=== PATIENT | female | born 1975 | race African-American/Black ===

== ENCOUNTER 2020-02-13 01:03 | Inpatient (IN) | payer OTHER ==
[2020-02-13] MEDS ORDERED: SODIUM CHLORIDE 0.9% (FLUSH) 10 ML SYG IV PRN ×2 (01:13→09:13)
--- NOTE | 2020-02-13 01:16 | ED.PDOC ---
History of Present Illness - General Chief Complaint: Neuro Symptoms/Deficits Time Seen by Provider: 02/13/20 01:13 Source: patient, EMS, [facility] records - History of Present Illness Initial Comments: 44-year-old female with past medical history of chronic respiratory failure, trach/g-tube dependency, CAD, diabetes who is brought in by EMS from [facility] for chief complaint of altered mental status. Patient was last known to be normal around 7 PM. She was given Levemir 15 units subcu this evening and just prior to arrival the nurses noted that she was more altered than usual. Typically she is AAOx4, normal cognitive status, able to communicate by mouthing words/sentences (2/2 trach). Staff noted this evening that her eyes seem glazed and she did not seem alert and was unresponsive to simple questioning. Patient noted to be slightly hypotensive 90s/60s. EMS noted on scene also that rapid D stick was noted to be so low it would not register with the glucometer, estimated less than 30. An IO was placed to the left tibia by EMS and patient was given 1 amp of D50 in route. Her mental status improved back to baseline. Patient then reported some pain from the IO and she was given a dose of morphine. Currently she denies any pain or other acute symptoms. Specifically denies chest pain, shortness of breath, abdominal pain, nausea. Reportedly patient was [facility] a [facility] last month after having a prolonged hospital stay following a massive heart attack and prolonged ICU stay. Little else is known about her history at this time. Allergies/Adverse Reactions: Allergies Metronidazole [From Flagyl] Allergy (Verified 02/13/20 03:01) Home Medications: Ambulatory Orders Acetaminophen [Tylenol] 500 mg PO DAILY 02/13/20 Amiodarone HCl 200 mg PO DAILY 02/13/20 Aspirin [Aspirin 81 Low Dose] DAILY 02/13/20 Atorvastatin Calcium 40 mg PO DAILY 02/13/20 Carvedilol 6.25 mg PO DAILY 02/13/20 Cyanocobalamin [B12] 1,000 mcg PO DAILY 02/13/20 Ergocalciferol [Vitamin D] 50,000 unit PO DAILY 02/13/20 Famotidine 20 mg PO DAILY 02/13/20 Ferrous Sulfate [Feosol Tab] 325 mg PO 02/13/20 Furosemide 40 mg PO 02/13/20 Ibuprofen 600 mg PO 02/13/20 Insulin Glargine [Basaglar Kwikpen] 100 unit SC 02/13/20 Ipratropium-Albuterol [Ipratropium [place]/Albut 0.5-2.5 (3) mg/3Ml] 02/13/20 Metformin HCl [Metformin Hydrochloride E] 500 mg PO 02/13/20 Sennosides-Docusate Sodium [Docusate Sodium/Sennoside 8.6-50 mg] 1 tab PO 02/13/20 Ticagrelor [Brilinta] 90 mg PO 02/13/20 levETIRAcetam INJ [Keppra INJECTION] 0 mg IV 02/13/20 Review of Systems - Review of Systems Review of Systems: 02/13/20 01:38 as per HPI All other Systems: Reviewed and Negative Family Medical History - Family History Father Family History: Unknown Physical Exam - Physical Exam General Appearance: Alert, Comfortable, No apparent distress, Obese Eye Exam: bilateral normal Ears, Nose, Throat: normal ENT inspection Neck: non-tender, full range of motion, supple, normal inspection, other - tracheostomy present Respiratory: chest non-tender, lungs clear, normal breath sounds, no respiratory distress, no accessory muscle use Cardiovascular/Chest: normal peripheral pulses, regular rate, rhythm, no edema, no gallop, no JVD, no murmur, other - distant heart sounds due to large body habitus Peripheral Pulses: radial,right: 2+, radial,left: 2+ Gastrointestinal/Abdominal: soft, mass - large approx 20x20 cm mass in lower abdomen/suprapubic region, appears nontender on exam, no olson catheter in place, other - g-tube in place to epigastric/LUQ region Extremity: non-tender, normal inspection, normal capillary refill, pedal edema Neurologic: alert, other - appears awake and alert, able to answer simple yes/no questions, appears in no distress, bed-bound Skin Exam: normal color, warm/dry Progress - Progress Progress: 02/13/20 01:41 Altered mental status -consider: acute hypoglycemia 2/2 insulin given clinical scenario with improvement with D50. Consider also: sepsis, ACS, CVA, uremia, acute neurogenic bladder, acute renal failure, SBO, UTI, PNA, COVID-19, DKA, other -pt stable upon ED arrival, on baseline respiratory requirement - 2 L supplemental O2 by cannula. BP improved to 110s/80s -pt also noted to have large lower abdominal/suprapubic mass on arrival - appears to be extremely enlarged bladder filled with urine, gross estimate >3 L -obtain stat bloodwork, follow D-stick glucose q15-20 mins, sepsis work-up, rapid COVID-19 swab, insert olson catheter, clamp frequently 02/13/20 03:20 -Patient again developed slight altered mental status and glucose was found to be less than 40. Another 1 amp of D50 was given with rapid improvement of mental status back to baseline. -She has put out now more than 2 L of urine with Olson catheter placement. Appears dark and cloudy, very suspicious for infection. UA pending. Labs otherwise reveal serum WBC 17,000 with 81% neutrophils and no bands, lactic acid 2.2. H/H 7.4/23, PLTs 643,000. Na 146, Cl 112, K 4.9, bicarb 20, BUN 70, Cr 2.7. T bili/alk phos/LFT's wnl. Rapid COVID-19 negative. No prior labs on record for comparison. Concern for recurrent/resistant hypoglyemia, sepsis, acute anemia, acute renal failure (obstructive vs prerenal vs combined). Pt denies any hx of rectal bleeding. She does report hx of anemia and need for blood transfusion in the past. -Vitals stable at the moment. Will give 1 L NS bolus. Begin broad-spectrum Abx with Zosyn. Obtain CT C/A/P to look for possible sources of occult hemorrhage. Will likely need admission vs transfer to higher LOC for management of trach while inpatient. Awaiting RVP results. COVID-19 testing is negative. 02/13/20 05:22 -Repeat D-stick. Pt remains stable. Now >3.5 L UOP since arrival. -CT head shows no acute processes, limited eval due to motion artifact. -CT Chest shows LLL atelectasis vs infiltrate. CT A/P reveals mild prominence of BL renal collecting systems w/o evidence of acute obstruction. Bladder wall thickening also noted. Gallstones noted w/o evidence of acute pathology. No other acute processes noted. No occult hemorraging noted. -Rectal exam reveals Stage III ulcer of buttocks. Light brown stool in rectal vault, no masses or bleeding. No fissures. FOBT negative. Suspect anemia is chronic in nature and not acute as no evidence of active hemorrhage. Pt does report hx of anemia and hx of need for blood transfusions in the past. -Given CT findings of possible LLL infiltrate in septic trach pt, concern for possible aspiration PNA - Vancomycin 1 g IV added to Abx regimen. Will also given another 1 L NS bolus. -Spoke with Luisito Smith regarding possible admission for sepsis, hypoglycemia, AMS, UTI, acute kidney injury, anemia. He states he will need to see if we can manage this trach patient here. In the meantime, will call other facilities to see if any beds are available but highly doubtful as other transfers have been declined this morning due to lack of capacity. 02/13/20 05:44 -[facility] contacted, awaiting call back. -Pt has now received a total of 4 amps of D50. If she remains hypoglycemic, will begin D5 gtt. 02/13/20 05:52 -[facility], [facility], and [facility] have declined the patient. [facility] reports reason as they feel pt could be managed just as well here. -Repeat D-stick 94. Pt remains stable. Continue q20-30 min glucose checks for now. Awaiting call back from Luisito Smith. 02/13/20 06:55 -Pt has remained stable. Glucose checks remain >90. Spoke with Luisito Smith who has accepted the patient for admission. Ilan Mtz MD Billing #[id number] 02/13/20 01:13 IV Care:Saline Lock per Protoc QSHIFT Telemetry .ONCE Sodium Chloride 0.9% (Flush) [Saline Flush Syringe] 10 ml IV PRN PRN Pulse Oximetry Assessment DAILY 02/13/20 01:15 EKG STAT 02/13/20 01:30 Catheter:Olson QSHIFT 02/13/20 02:14 UA [URINALYSIS] Stat 02/13/20 03:33 Abdoment/Pelvis w/o Contrast [CT] Stat Chest w/o Contrast [CT] Stat 02/13/20 03:40 BOLUS Sodium Chloride 0.9% 1000ML [Ns 1000 ml] 1,000 ml IVS ONCE Piperacillin/Tazobactam [Zosyn] 2.25 gm Sodium Chloride 0.9% 50Ml [NS 50ml] 50 ml IVPB ONCE 02/13/20 03:41 GLUCOSE, FINGER STICK Stat 02/13/20 09:00 Pulse Ox Daily Laboratory Results - last 24 hr 02/13/20 02/13/20 02/13/20 01:40 01:50 01:50 WBC 17.0 H RBC 2.60 L Hgb 7.4 L* Hct 23.4 L MCV 90.3 MCH 28.6 MCHC 31.7 L RDW 18.0 H Plt Count 643 H MPV 7.7 Absolute Neuts (auto) 13.80 H Absolute Lymphs (auto) 1.60 Absolute Monos (auto) 1.50 H Absolute Eos (auto) 0.10 Absolute Basos (auto) 0.00 Neutrophils % 81.4 H Lymphocytes % 9.6 L Monocytes % 8.6 Eosinophils % 0.3 L Basophils % 0.1 Sodium 146 H Potassium 4.9 Chloride 112 H Carbon Dioxide 20 L Anion Gap 18.9 H BUN 70 H Creatinine 2.77 H BUN/Creatinine Ratio 25.3 H POC Glucose 81 Random Glucose 54 L Serum Osmolality 308.6 H Lactic Acid Calcium 7.9 L Total Bilirubin 0.6 AST 18 ALT 15 Alkaline Phosphatase 72 Troponin I B-Natriuretic Peptide 322.0 H* Serum Total Protein 6.9 Albumin 2.5 L Globulin 4.4 H Albumin/Globulin Ratio 0.6 L 02/13/20 02/13/20 02/13/20 01:50 01:50 03:10 WBC RBC Hgb Hct MCV MCH MCHC RDW Plt Count MPV Absolute Neuts (auto) Absolute Lymphs (auto) Absolute Monos (auto) Absolute Eos (auto) Absolute Basos (auto) Neutrophils % Lymphocytes % Monocytes % Eosinophils % Basophils % Sodium Potassium Chloride Carbon Dioxide Anion Gap BUN Creatinine BUN/Creatinine Ratio POC Glucose < 40 L* D Random Glucose Serum Osmolality Lactic Acid 2.2 Calcium Total Bilirubin AST ALT Alkaline Phosphatase Troponin I 0.03 B-Natriuretic Peptide Serum Total Protein Albumin Globulin Albumin/Globulin Ratio 02/13/20 03:13 WBC RBC Hgb Hct MCV MCH MCHC RDW Plt Count MPV Absolute Neuts (auto) Absolute Lymphs (auto) Absolute Monos (auto) Absolute Eos (auto) Absolute Basos (auto) Neutrophils % Lymphocytes % Monocytes % Eosinophils % Basophils % Sodium Potassium Chloride Carbon Dioxide Anion Gap BUN Creatinine BUN/Creatinine Ratio POC Glucose Random Glucose Cancelled Serum Osmolality Lactic Acid Calcium Total Bilirubin AST ALT Alkaline Phosphatase Troponin I B-Natriuretic Peptide Serum Total Protein Albumin Globulin Albumin/Globulin Ratio - EKG/XRAY/CT EKG: Sinus - Normal sinus rhythm, heart rate 90, Q waves noted in anterior leads likely indicative of prior TX, no ST elevations noted, axis normal, intervals normal, no prior EKG for comparison. XRAY: chest - per my read, appears to have cardiomegaly with some slight central pulmonary vascular congestion. No focal infiltrates noted Departure - Departure Clinical Impression: Hypoglycemia associated with type 2 diabetes mellitus Sepsis Qualifiers: Sepsis type: sepsis due to unspecified organism Sepsis acute organ dysfunction status: with acute organ dysfunction Severe sepsis acute organ dysfunction type: acute renal failure Acute renal failure type: unspecified Severe sepsis shock status: without septic shock Qualified Code(s): A41.9 - Sepsis, unspecified organism Acute renal failure Qualifiers: Acute renal failure type: unspecified Qualified Code(s): N17.9 - Acute kidney failure, unspecified Anemia Qualifiers: Anemia type: unspecified type Qualified Code(s): D64.9 - Anemia, unspecified Altered mental status Qualifiers: Altered mental status type: transient alteration of awareness Qualified Code(s): R40.4 - Transient alteration of awareness Time of Disposition: 06:57 Disposition: Admit Patient Condition: Fair Departure Forms: ED Discharge - Pt. Copy, Patient Portal Self Enrollment Diet: resume usual diet Referrals: LATRICIA JORDAN [Primary Care Provider] - 1-2 Weeks Home Medications: Ambulatory Orders Acetaminophen [Tylenol] 500 mg PO DAILY 02/13/20 Amiodarone HCl 200 mg PO DAILY 02/13/20 Aspirin [Aspirin 81 Low Dose] DAILY 02/13/20 Atorvastatin Calcium 40 mg PO DAILY 02/13/20 Carvedilol 6.25 mg PO DAILY 02/13/20 Cyanocobalamin [B12] 1,000 mcg PO DAILY 02/13/20 Ergocalciferol [Vitamin D] 50,000 unit PO DAILY 02/13/20 Famotidine 20 mg PO DAILY 02/13/20 Ferrous Sulfate [Feosol Tab] 325 mg PO 02/13/20 Furosemide 40 mg PO 02/13/20 Ibuprofen 600 mg PO 02/13/20 Insulin Glargine [Basaglar Kwikpen] 100 unit SC 02/13/20 Ipratropium-Albuterol [Ipratropium [place]/Albut 0.5-2.5 (3) mg/3Ml] 02/13/20 Metformin HCl [Metformin Hydrochloride E] 500 mg PO 02/13/20 Sennosides-Docusate Sodium [Docusate Sodium/Sennoside 8.6-50 mg] 1 tab PO 02/13/20 Ticagrelor [Brilinta] 90 mg PO 02/13/20 levETIRAcetam INJ [Keppra INJECTION] 0 mg IV 02/13/20 Decision To Admit - Decistion To Admit Decision to Admit Reason: Admit from ER Decision to Admit Date: 02/13/20 Decision to Admit Time: 06:57
--- NOTE | 2020-02-13 01:43 | RAD ---
EXAM: XR Chest, 1 View CLINICAL HISTORY: The patient is 44 years old and is Female; altered mental status, hypoglycemia TECHNIQUE: Frontal view of the chest. COMPARISON: No relevant prior studies available. FINDINGS: Lungs: No consolidation. No pneumothorax. Pleural space: The left costophrenic angle is poorly visualized, which may be due to a small pleural effusion or technique. No pneumothorax. Heart: There is the suggestion of an enlarged cardiac silhouette, though evaluation is limited on the AP view. Mediastinum: Unremarkable. Bones/joints: Unremarkable. Tubes, lines and devices: There is a tracheostomy tube. There are dense/metallic foci overlying the upper abdomen which may be postsurgical/postprocedural. IMPRESSION: No focal consolidation. Electronically signed by: Mayank Johnson MD 02/13/2020 1:42 AM [facility]
[2020-02-13] MEDS ORDERED: DEXTROSE 50% 25 GM/50 ML SYG IV ONE ×4 (02:57→11:07)
[2020-02-13] MEDS ORDERED: SODIUM CHLORIDE 0.9% 1000ML 1,000 ML IVS ONE ×2 (03:40→04:50)
[2020-02-13] MEDS ORDERED: PIPERACILLIN/TAZOBACTAM 2.25 GM in SODIUM CHLORIDE 0.9% 50ML 50 ML IVPB ONE (03:40)
--- NOTE | 2020-02-13 04:36 | CT ---
EXAM: Head HISTORY: 44 years Female altered mental status, hypoglycemia COMPARISON: None TECHNIQUE: Contiguous axial images of the head were obtained from the skull base through the vertex without IV contrast followed by multiplanar reformats. This exam was performed according to our departmental dose-optimization program, which includes automated exposure control, adjustment of the mA and/or kV according to patient size and/or use of iterative reconstruction technique. FINDINGS: Motion limited study. Brain volume is commensurate with patient age. No hydrocephalus. No midline shift, mass effect or abnormal extraaxial collection. No discernible acute intracranial hemorrhage or developing infarct. White matter is within normal limits. Orbital contents are unremarkable. Scattered paranasal sinus disease. Left maxillary sinus benign osteoma. The mastoid air cells are well pneumatized. No acute calvarial abnormality. IMPRESSION: 1. Motion limited study. 2. No discernible acute intracranial pathology. Electronically signed by: Gabriel Díaz MD 02/13/2020 4:34 AM [facility]
--- NOTE | 2020-02-13 04:39 | CT ---
EXAM: CT Abdomen and Pelvis Without Intravenous Contrast CLINICAL HISTORY: The patient is 44 years old and is Female; Lower abdominal mass, acute anemia, sepsis TECHNIQUE: Axial computed tomography images of the abdomen and pelvis without intravenous contrast. Sagittal and coronal reformatted images were created and reviewed. This CT exam was performed using one or more of the following dose reduction techniques: automated exposure control, adjustment of the mA and/or kV according to patient size, and/or use of iterative reconstruction technique. COMPARISON: No relevant prior studies available. FINDINGS: LUNG BASES: Minimal dependent atelectasis in the lung bases is noted. ABDOMEN: LIVER: Homogeneous without focal mass. GALLBLADDER AND BILE DUCTS: Several gallstones are present within the gallbladder. The gallbladder is minimally distended. There is no ductal dilatation. PANCREAS: Unremarkable. No ductal dilation. SPLEEN: Unremarkable. ADRENALS: Unremarkable. No mass. KIDNEYS AND URETERS: Mild prominence of the bilateral renal collecting systems is noted. There is no obstructing renal or ureteral calculus. STOMACH AND BOWEL: The stomach is decompressed. The small bowel is normal in caliber. Stool is present throughout colon. There is no mucosal thickening or evidence of bowel obstruction. PELVIS: APPENDIX: The appendix is normal in caliber without surrounding inflammation. BLADDER: A Carvalho catheter is present within the decompressed urinary bladder. No stones. REPRODUCTIVE: Unremarkable as visualized. ABDOMEN and PELVIS: INTRAPERITONEAL SPACE: Unremarkable. No free air. No significant fluid collection. BONES/JOINTS: Multilevel degenerative change of the spine is present. SOFT TISSUES: The soft tissues are normal. VASCULATURE: An infrarenal IVC filter is in place. No abdominal aortic aneurysm. LYMPH NODES: Unremarkable. No enlarged lymph nodes. TUBES, LINES AND DEVICES: A gastrostomy tube is present within the gastric body. IMPRESSION: 1. Cholelithiasis without CT evidence to suggest cholecystitis. 2. Prominence of the bilateral renal collecting systems. No obstructing calculus is seen. Electronically signed by: Ely Salas MD 02/13/2020 4:37 AM [facility]
--- NOTE | 2020-02-13 04:42 | CT ---
EXAM: CT Chest Without Intravenous Contrast CLINICAL HISTORY: The patient is 44 years old and is Female; acute anemia, sepsis, altered mental status TECHNIQUE: Axial computed tomography images of the chest without intravenous contrast. Sagittal and coronal reformatted images were created and reviewed. This CT exam was performed using one or more of the following dose reduction techniques: automated exposure control, adjustment of the mA and/or kV according to patient size, and/or use of iterative reconstruction technique. COMPARISON: No relevant prior studies available. FINDINGS: LUNGS: Dependent densities within the lung bases, left greater than right is noted. Air bronchograms within the left lower lobe are present. The remainder the lungs are clear. PLEURAL SPACE: Unremarkable. No pneumothorax. No significant effusion. HEART: The heart is prominent. There is a trace pericardial effusion. BONES/JOINTS: No acute fracture. SOFT TISSUES: The soft tissues are normal. VASCULATURE: Unremarkable. No thoracic aortic aneurysm. LYMPH NODES: Unremarkable. No enlarged lymph nodes. TUBES, LINES AND DEVICES: s tracheostomy tube is present with the tip at the level of the thoracic inlet. IMPRESSION: Findings suggestive of bibasilar atelectasis, left greater than right. Developing infiltrate within the left lower lobe is not excluded. Electronically signed by: Ely Salas MD 02/13/2020 4:40 AM [facility]
[2020-02-13] MEDS ORDERED: VANCOMYCIN HCL INJ 1,000 MG in SODIUM CHLORIDE 0.9% 250ML 250 ML IVPB ONE (04:49)
--- NOTE | 2020-02-13 08:11 | HP ---
SUPERVISING PHYSICIAN: Derick Moe MD CHIEF COMPLAINT: Low blood sugar. HISTORY OF PRESENT ILLNESS: Ms. Huston is a 44 year-old -[place] female with a past medical history of chronic respiratory failure with a trach and G-tube dependent, cleaned and dressed, diabetes. She was brought in from [facility] by EMS with a chief complaint of altered mental status. The fdc endorses the last time was seen normal was around 7 o'clock prior to coming to the Emergency Room. She was given 15 of Levemir subcutaneous and just prior to arrival the nurses noted she was more altered than usual, typically her normal neuro status is alert and oriented x4. She doesn't communicate but not alert and seems to be secondary to her trach. The staff endorses they noted her oxygen in place and she did not seem alert and unresponsive to simple questions. On the scene, EMS defib noted to be registered less than 30. An IO at that time was placed in the left tibia and she was given 1 amp of D50 en route. Her mental status apparently improved at baseline shortly after report of the Emergency Room she had no significant pain other than IO placement and was not having any chest pain, significant short of breath, abdominal pain or nausea. Labs were checked, hemoglobin was noted to be low at 7.4 and 23.4 which was chronic for her. White count was a little elevated at 17,000 but her chemistries showed she was significantly dehydrated with initial osmolality of 308, creatinine 2.77 with BUN of 70, no mention of chronic renal failure. On exam, it was noted that she had what felt like possibly tumor or distended bladder and on placement of Carvalho, over 2,000 cc of urine was collected. Sodium was noted to be 146 with BNP of 322. Shortly after admission a recheck of her blood sugar showed she was back to 54, she was given additional amps of D50 and glucoses were followed. She went down to less than 40 once again and then was given another amp of D50 and came back up to 66 and again dropped down into the 90s which seemed to be fairly stable. At that time, she was admitted for continuation of monitoring and treatment of underlying hypoglycemia. Urinalysis did show significant pyuria with too numerous to count WBCs with 2+ bacteria, nitrites were negative. She was given empiric coverage broad spectrum with Zosyn prior to admission and placed in observation. Her vital signs were showing to be stable with blood pressure on admission to the Emergency Room of 112/72, admission to the medical/surgical floor showed blood pressure 115/66, heart rate 101. She does have a trach line in place and oxygen saturation 100% on 2 liter trach collar. She also had an abdominal pelvic CT due to the fact she had such a low H&H and history was very vague and given she had a white count, noted per radiology interpretation she had cholelithiasis but no evidence to suggest cholecystitis. There was note of prominence of bilateral renal collecting systems and no obstructing calculus was seen. She also had a CT of the chest and per radiology interpretation showed some findings suggestive of bibasilar atelectasis, left greater than right. Developing infiltrate in the left lower lobe is not excluded. CT of her head showed no discernible acute intracranial pathology. The patient is now going to be placed in observation for continued treatment and monitoring of her blood sugars and further evaluation and treatment. She was admitted in stable condition. PAST MEDICAL HISTORY: 1. Diabetes mellitus type 2, insulin dependent. 2. Chronic respiratory failure requiring trach and G-tube. 3. History of anoxic brain injury. PAST SURGICAL HISTORY: 1. Tracheostomy. 2. Below-knee amputation., complications of diabetic ulcer. CURRENT MEDICATIONS: Awaiting updated list of medications from fdc. ALLERGIES: Flagyl. FAMILY HISTORY/SOCIAL HISTORY:: Not obtainable de to patient unable to communicate and her mental status. REVIEW OF SYSTEMS: Positives and negatives as mentioned in the history and physical. Review of systems is not complete due to patient's inability to provide any significant history. PHYSICAL EXAMINATION: VITAL SIGNS: Temperature 97, pulse 90, blood pressure 112/73, respirations 16, oxygen saturation 98% on a trach collar. GENERAL: The patient is obese, at tome of exam is alert. She looks comfortable, she does not appear to be in acute distress. Trach collar is in place. HEENT: Tympanic membranes are clear bilaterally. Oropharynx is pink. Poor dentition. Tracheostomy is present with trach collar. No signs of complications or infection on exam. CHEST: Lung sounds clear, just diminished towards the bases. No obvious rhonchi, rales, or wheezes. No signs of respiratory distress. CARDIOVASCULAR: Tones were very diminished and distant due to body habitus but regular rate and rhythm, no appreciable murmurs, rubs, or gallops. ABDOMEN: Obese, soft, non-tender, positive bowel sounds. G-tube is in place in the epigastric and left upper quadrant region, no complications, stoma looks clean and healthy. EXTREMITIES: Left extremity shows trace of edema. Right lower extremity with below-knee amputation. NEUROLOGIC: She is alert and can answer questions by shaking her head yes or no but is nonverbal due to the tracheostomy. She looks to be in no distress. She is quite weak but from being bedbound, no obvious focal/motor deficits are noted. SKIN: Warm, pink and dry. LABORATORY: White count 17,000, hemoglobin 7.4, hematocrit 23.4, platelet count 643,000, differential does show a left shift. Her chemistries show initial sodium of 146, potassium 4.9, initial blood sugar of 81. Creatinine 2.77 with BUN 70, anion gap was elevated at 18.9, carbon dioxide 20. Osmolality 308, lactic acid 2.2, calcium 7.9 corrected to 8.1 for albumin of 2.5. BNP 322, troponin 0.03. Did multiple fingerstick blood sugars in the Emergency Room ranging from 40s up to mid 90s. RADIOLOGY: CT chest and abdomen per radiology interpretation showed suggestive findings of bibasilar atelectasis. Abdomen without contrast showed cholelithiasis without CT evidence to suggest cholecystitis. There is note of prominence of bilateral renal collecting system, no obstructing calculus was seen. CT head without any acute findings. Echocardiogram pending. ASSESSMENT: 1. Acute mental status secondary to extended hypoglycemic event in a type 2 diabetic on insulin. 2. Chronic respiratory failure with the patient being trach dependent and G- tube dependent. 3. Acute renal failure, probably a combination of pre and post renal with the patient showing to be mildly dehydrated with some urinary retention. 4. Questionable neurogenic bladder with the patient showing urinary retention requiring Carvalho placement. 5. Diabetes mellitus type 2 on insulin and oral therapy. 6. Anemia, normocytic normochromic, likely from chronic illness and bedbound. 7. Leukocytosis with no obvious signs of underlying pneumonia, likely due to prerenal azotemia with some dehydration. 8. Urinary tract infection requiring Carvalho placement due to urinary retention with cultures pending. PLAN: The patient is going to be placed in observation to further control and monitor blood sugars. We will attempt to get orders on her tube feeding and get those started and see if we can give her some nutritional substance through the G-tube to see if we can keep her blood sugar elevated and not require constant D50. In the interim, we will go ahead and put her on some D10 to stabilize her blood sugar and transition her to some D5W based off labs. Her H&H is low but likely is chronic, there are no signs of acute loss. Will hold off on any transfusion at this point. I did talk to Dr. Moe, he feels if she is not obviously showing any distress from acute H&H and acute blood loss, H&H can be dealt with as an outpatient and not transfusing unless we just have to. I did order an echocardiogram to better assess her cardiac history given that she does have a history of some form of NM and stent placement, although the history if kind of vague ans she is not able to provide any most of it is obtained from old records that were in the chart. We will resume her home medications as appropriate to her treatment at this time, of course, all diabetic medication. Hopefully we can get her blood sugars leveled and stable and get her rehydrated, get her eating through the G-tube and get her stabilized and transfer her back to [facility], hopefully in the morning. Until the, we will continue to monitor and treat as needed. #[id number] [facility]
[2020-02-13] MEDS ORDERED: DEXTROSE 50% 25 GM/50 ML SYG IV PRN (09:12)
[2020-02-13] MEDS ORDERED: GLUCAGON INJ 1 MG VIAL SUBCU PRN (09:12)
[2020-02-13] MEDS ORDERED: ONDANSETRON INJ 4 MG/2 ML VIAL IV PRN (09:13)
[2020-02-13] MEDS ORDERED: ACETAMINOPHEN 325 MG TAB GT PRN (09:13)
[2020-02-13] MEDS ORDERED: IV SET AND CAP CHANGE INJ INJ SCH (09:30)
[2020-02-13] MEDS ORDERED: VANCOMYCIN PER PHARMACY IVPB SCH (09:30)
[2020-02-13] MEDS: CEFEPIME 2 GM in SODIUM CHL 0.9% 100ML MINI-BAG 100 ML IVPB SCH ×2 (09:39→21:56)
[2020-02-13] MEDS ORDERED: DEXTROSE 10% 1000ML 1,000 ML IVS PRN (10:59)
[2020-02-13] MEDS ORDERED: DEXTROSE 10% 1000ML 1,000 ML IVS ONE (11:07)
[2020-02-13] MEDS: INSULIN LISPRO 100 UNITS/ML PEN SUBCU SCH ×3 (11:52→21:17)
[2020-02-13] MEDS ORDERED: levETIRAcetam SUSPENSION 100 MG/ML BTTL GT SCH (13:30)
[2020-02-13] MEDS: AMIODARONE HCL 200 MG TAB GT SCH (14:47)
[2020-02-13] MEDS: levETIRAcetam 250 MG TAB GT SCH ×2 (14:47→22:49)
[2020-02-13] MEDS: CARVEDILOL 3.125 MG TAB GT SCH (14:48)
[2020-02-13] MEDS: KCL 20MEQ/D5W 1,000 ML IVS PRN (19:26)
[2020-02-13] MEDS: VANCOMYCIN HCL INJ 1,000 MG, VANCOMYCIN HCL INJ 250 MG in SODIUM CHLORIDE 0.9% 250ML 25... IVPB SCH (19:47)
[2020-02-13] MEDS ORDERED: VANCOMYCIN HCL INJ 1,750 MG in SODIUM CHLORIDE 0.9% 500ML 500 ML IVPB SCH (20:00)
[2020-02-14] MEDS ORDERED: PANTOPRAZOLE SODIUM IV 40 MG VIAL ONE (04:25)
[2020-02-14] MEDS: PANTOPRAZOLE SODIUM IV 40 MG VIAL IV SCH (06:29)
[2020-02-14] MEDS: levETIRAcetam 250 MG TAB GT SCH ×3 (06:29→23:00)
[2020-02-14] MEDS ORDERED: BIFIDOBACTERIUM INFANTIS 4 MG CAP ONE (07:30)
[2020-02-14] MEDS: INSULIN LISPRO 100 UNITS/ML PEN SUBCU SCH ×4 (07:46→21:46)
--- NOTE | 2020-02-14 08:10 | RAD ---
EXAM DESCRIPTION: Chest,1 View CLINICAL HISTORY: 44 years Female, Pneumonia COMPARISON: 02/13/2020 TECHNIQUE: Single view radiograph of the chest. IMPRESSION: Enlarged cardiac silhouette. Endotracheal tube unchanged. Patchy airspace opacities bilaterally with left basilar consolidation probably representing multifocal or bilateral pneumonia and/or underlying pulmonary edema. Small left pleural effusion. No pneumothorax. Osseous structures are intact. Electronically signed by: Saud Barron MD 02/14/2020 8:08 AM [employer]
[2020-02-14] MEDS: BIFIDOBACTERIUM INFANTIS 4 MG CAP GT SCH (08:50)
[2020-02-14] MEDS: CARVEDILOL 3.125 MG TAB GT SCH (08:50)
[2020-02-14] MEDS: AMIODARONE HCL 200 MG TAB GT SCH (08:50)
[2020-02-14] MEDS: CEFEPIME 2 GM in SODIUM CHL 0.9% 100ML MINI-BAG 100 ML IVPB SCH ×2 (09:12→21:48)
[2020-02-14] MEDS: KCL 20MEQ/D5W 1,000 ML IVS PRN ×2 (09:13→19:27)
[2020-02-14] MEDS ORDERED: FUROSEMIDE INJ 20 MG/2 ML VIAL IV ONE ×2 (10:15→22:50)
[2020-02-14] MEDS ORDERED: ALBUTEROL SULFATE 2.5 MG/3 ML VIAL NEB PRN (10:26)
[2020-02-14] MEDS ORDERED: SODIUM CHLORIDE 0.9% (FLUSH) 10 ML SYG IV PRN (10:26)
[2020-02-14] MEDS ORDERED: IV SET AND CAP CHANGE INJ INJ SCH (10:30)
--- NOTE | 2020-02-14 11:03 | PN ---
SUPERVISING PHYSICIAN: Derick Moe MD DATE: 02/14/20 SUBJECTIVE: The patient's blood sugars have been stabilized although it was reported by nursing that her O2 saturations dropped to 89% and she has required an increase in her oxygen. The patient is trach dependent, but she does answer some simple yes/no questions. She is short of breath, but denies chest pain, nausea or vomiting. OBJECTIVE: VITAL SIGNS: Temperature 98.1, heart rate 108, blood pressure 110/76, respiratory rate 20 although it was as high as 24. O2 saturation is now 97%. It had dropped to 89% and had required an increase in her oxygen. RESPIRATORY: Diminished breath sounds throughout, especially on the left, with scattered rhonchi throughout. CARDIAC: Tachycardic rate and regular rhythm. NEUROLOGIC: Awake, alert. LABORATORY: WBCs 17,200, hemoglobin 6.4, hematocrit 19.6, platelet count 609. She has a left shift on her differential. Sodium 145, potassium 4.4, chloride 114, carbon dioxide 21, BUN 53, creatinine 2.05, calcium 7.1. MICROBIOLOGY: Stool for occult blood is negative. Preliminary blood cultures show no growth after 24 hours. RADIOLOGY: Chest x-ray shows enlarged cardiac silhouette, endotracheal tube unchanged, patchy airspace opacities bilaterally with left basilar consolidation probably representing multifocal or bilateral pneumonia and/or underlying pulmonary edema. Small left pleural effusion. No pneumothorax. Osseous structures are intact. All other labs and films have been reviewed via the EMR. ASSESSMENT: 1. Sepsis related to bilateral pneumonia, mostly healthcare acquired with WBC of greater than 17,000, heart rate 108 and showing hypoxia with an O2 saturation of 89% and respiratory rate of 24. 2. Acute renal failure with a creatinine of 2.44. 3. Urinary tract infection contributing to the sepsis. 4. Anemia, normocytic/normochromic, most likely from chronic disease including renal failure. 5. Hypoglycemia on admission requiring fluids and D10 with blood sugars now normalized. 6. Diabetes mellitus, type 2, on insulin. 7. Chronic respiratory failure due to myocardial infarction several months ago. She has a chronic trach and a G-tube. 8. Questionable neurogenic bladder requiring a Carvalho catheter due to urinary retention. 9. Thrombocytosis. PLAN: We will continue present supportive care. I have changed the patient to a full admission as we will treat her aggressively for her pneumonia. I have initiated the pneumonia guidelines. We will do aggressive pulmonary hygiene and I will continue her on her antibiotics of Zosyn, vancomycin and cefepime. I am also going to give her one unit of packed red blood cells hopefully to help with her oxygenation. I will repeat her labs in the morning. Hopefully, we can stabilize her respiratory status and she can have a full GI and renal workup at discharge. We will continue to monitor the patient closely and follow as needed. #[id number] ADDENDUM: Multiple attempts to reach family and medical power of attorney recruiter to obtain consent for blood transfusion. We were unable to contact them during any attempt. I discussed her case with Dr. Moe, and due to her condition and anemia, implied consent was given. KAEL
[2020-02-14] MEDS: IPRATROPIUM/ALBUTEROL 3 ML VIAL INH SCH ×3 (12:15→19:45)
[2020-02-14] MEDS ORDERED: SODIUM CHLORIDE 0.9% 250ML 250 ML IVS PRN (12:58)
[2020-02-14] MEDS ORDERED: FUROSEMIDE INJ 20 MG/2 ML VIAL ONE (17:29)
[2020-02-14] MEDS: VANCOMYCIN HCL INJ 1,000 MG, VANCOMYCIN HCL INJ 250 MG in SODIUM CHLORIDE 0.9% 250ML 25... IVPB SCH (19:31)
[2020-02-14] MEDS ORDERED: ACETAMINOPHEN 325 MG TAB GT ONE (22:51)
[2020-02-14] MEDS ORDERED: SODIUM CHLORIDE 0.9% 500ML 0 ML ONE (22:57)
[2020-02-15] MEDS: PANTOPRAZOLE SODIUM IV 40 MG VIAL IV SCH (06:01)
[2020-02-15 06:13] VITALS: BP 108/70; TEMP 98.2
--- NOTE | 2020-02-15 07:14 | RAD ---
EXAM: XR Chest, 1 View CLINICAL HISTORY: The patient is 44 years old and is Female; pna TECHNIQUE: Frontal view of the chest. COMPARISON: No relevant prior studies available. FINDINGS: Lungs: Focal airspace disease in the left mid lung field. Pleural space: The left costophrenic angle is not visualized. No pneumothorax. Heart: Unremarkable. No cardiomegaly. Mediastinum: Unremarkable. Bones/joints: Unremarkable. Tubes, lines and devices: There is a tracheostomy tube. Upper abdomen: The left hemidiaphragm is poorly visualized. IMPRESSION: 1. Focal airspace disease in the left mid lung field. 2. Left hemidiaphragm is poorly visualized which can be seen with left lower lobe consolidation or atelectasis. 3. Left costophrenic angle is obscured which can be seen with a left pleural effusion. Electronically signed by: Mayank Johnson MD 02/15/2020 7:12 AM [facility]
[2020-02-15] MEDS: AMIODARONE HCL 200 MG TAB GT SCH (07:55)
[2020-02-15] MEDS: levETIRAcetam 250 MG TAB GT SCH (07:55)
[2020-02-15] MEDS: BIFIDOBACTERIUM INFANTIS 4 MG CAP GT SCH (07:55)
[2020-02-15] MEDS: CARVEDILOL 3.125 MG TAB GT SCH (07:56)
[2020-02-15] MEDS: IPRATROPIUM/ALBUTEROL 3 ML VIAL INH SCH ×2 (08:16→14:51)
[2020-02-15] MEDS: INSULIN LISPRO 100 UNITS/ML PEN SUBCU SCH ×2 (09:01→11:48)
[2020-02-15] MEDS ORDERED: MAGNESIUM SULFATE PREMIX 2GM 2 GM in PREMIX BAG 1 BAG IVPB ONE (09:04)
[2020-02-15] MEDS: CEFEPIME 2 GM in SODIUM CHL 0.9% 100ML MINI-BAG 100 ML IVPB SCH (09:08)
[2020-02-15] MEDS ORDERED: MAGNESIUM SULFATE PREMIX 2GM 50 ML IVPB ONE (10:15)
--- NOTE | 2020-02-15 14:08 | DS ---
SUPERVISING PHYSICIAN: Derick Moe MD DISCHARGE DIAGNOSIS: 1. Sepsis related to bilateral pneumonia, mostly healthcare acquired with WBC of greater than 17,000, heart rate 108 and showing hypoxia with an O2 saturation of 89% and respiratory rate of 24. 2. Acute renal failure with a creatinine of 2.44. 3. Urinary tract infection contributing to the sepsis. 4. Anemia, normocytic/normochromic, most likely from chronic disease including kidney failure. 5. Hypoglycemia on admission requiring fluids and D10 with blood sugars now normalized. 6. Diabetes mellitus, type 2, on insulin. 7. Chronic respiratory failure due to myocardial infarction several months ago. She has a chronic trach and G-tube. 8. Questionable neurogenic bladder requiring a Carvalho catheter due to urinary retention. 9. Thrombocytosis. HISTORY OF PRESENT ILLNESS: This is a 44 year-old female patient with a past medical history of chronic respiratory failure with a trach and G-tube dependent and lives at [facility]. She was brought to the Emergency Room by EMS with a chief complaint of altered mental status. She is a diabetic and although she does not communicate, her mental status was quite altered. Initially, her blood sugar registered less than 30. An IO was placed at the scene. She was given 1 amp of D50 en route. Her mental status did improve. She presented to the Emergency Room with initial vital signs showing a heart rate of 90. It went up to 106. Blood pressure 112/72, respiratory rate 16, O2 saturation 100% on trach collar. Lab was done and she had WBC 17,000 with hemoglobin 7.4, hematocrit 23.4 and left shift on her differential. Later that morning, she had hemoglobin 6.3 and hematocrit 19 with sodium 148, potassium 4.2, chloride 117, BUN 66, creatinine 2.44 and lactic acid 2.2. Calcium low at 7.4. Urinalysis showed cloudy appearance with moderate urine blood, large amount of urine leukocyte esterase, too numerous to count urine RBCs, too numerous to count urine WBCs and 2+ urine bacteria. Stool for occult blood was negative. COVID-19 testing was negative. Chest x-ray showed no focal consolidation. Abdomen and pelvis CT showed 1) Cholelithiasis without CT evidence to suggest cholecystitis. 2) Prominence of bilateral renal collecting system. No obstructing calculus seen. Chest CT showed findings suggestive of bibasilar atelectasis, left greater than right. Developing infiltrate in the left lower lobe is not excluded. CT of her head showed motion limited study with no discernible acute intracranial pathology. She was given multiple amps of D50 due to it dropping after normalizing. She was also given Zosyn for the urinary tract infection as well as some fluids. She was placed in observation in stable condition. HOSPITAL COURSE: Blood sugars were monitored closely and her nutrition was started via her G-tube. She was on D10 until her sugars stabilized and then transitioned to some D5W. Her hemoglobin and hematocrit were low, but felt to be chronic due to her renal failure. Overnight, her respiratory status declined. They had to go up on her trach collar. The following morning, her hemoglobin was 6.4 with hematocrit 19.6. She was also started on antibiotics for healthcare acquired pneumonia including Zosyn, vancomycin and cefepime. It was also felt she would benefit from one unit of packed red blood cells to be given. That even after her blood transfusion, her H&H only sent up to hemoglobin 6.9 and hematocrit 21.2, so she received a second unit of packed red blood cells. This morning, her H&H is stabilized at 8.7. Her blood sugars are in the mid-200s to low 300s. Her vital signs are stable and she is at her baseline. She will be discharged back to [facility] in stable condition. LABORATORY: WBCs 18,200 with hemoglobin 8.7 and hematocrit 26.2. Electrolytes are basically within normal limits with the exception of her calcium is low at 6.9. Total bilirubin slightly high at 1.3. MICROBIOLOGY: Her urine culture shows budding yeast. RADIOLOGY: Her final chest x-ray showed 1) Focal airspace disease in the left mid lung field. 2) Left hemidiaphragm is poorly visualized which can be seen with left lower lobe consolidation or atelectasis. 3) Left costophrenic angle is obscured which can be seen with a left pleural effusion. DISCHARGE PLAN: The patient will be discharged back to [facility] in fair condition. She is resume her previous diet and continue her previous activity. She is to see Dr. Madrigal, her primary care physician, in the next 1 to 2 weeks. In addition to her routine medications, she will have 7 days of doxycycline and 6 days of cefepime IV antibiotics. It is recommended that the patient will need a nephrology, urology and hematology as well as GI referral or workup at discharge. The patient will be discharged with her Carvalho catheter due to urinary retention with a possible neurogenic bladder. In the ER, it was felt she had over 3 liters of urine retention prior to placing her Carvalho catheter. After consult with Urology, their recommendations can be followed for discontinuance of the Carvalho catheter. She is to return to the hospital or followup with her primary care physician for any problems or complications. DISCHARGE MEDICATIONS: 1. Brilinta. 2. Metformin. 3. Ipratropium albuterol. 4. Glargine insulin. 5. Ibuprofen. 6. Furosemide. 7. Ferrous sulfate. 8. Famotidine. 9. Vitamin D. 10. B12. 11. Carvedilol. 12. Atorvastatin. 13. Aspirin. 14. Amiodarone. 15. Acetaminophen. 16. Levetiracetam. 17. Folic acid 18. Miconazole topical. 19. Docusate sodium. 20. Align. 21. Doxycycline. 21. Cefepime. 22. Albuterol nebulizers. #[id number] [facility]
[2020-02-15 14:50] VITALS: O2SAT 100
== END 2020-02-15 12:30 | DRG 871 ==
LOC: ER 01:03 → OBSVTOIN 08:09 → MS 08:09
PROVIDERS: ADMIT Nurse Practitioner Family; ATTEND Nurse Practitioner Acute Care
PROC: 0YHJ33Z Insertion of Infusion Device into Left Lower Leg, Percutaneous Approach (ICD-10-PCS; 2020-02-13)
PROC: 30233N1 Transfusion of Nonautologous Red Blood Cells into Peripheral Vein, Percutaneous Approach (ICD-10-PCS; principal; 2020-02-14)
DX: A41.9 Sepsis, unspecified organism (principal); J18.9 Pneumonia, unspecified organism; N17.9 Acute kidney failure, unspecified; N39.0 Urinary tract infection, site not specified; J96.11 Chronic respiratory failure with hypoxia; Z68.42 Body mass index [BMI] 45.0-49.9, adult; E11.649 Type 2 diabetes mellitus with hypoglycemia without coma; R65.20 Severe sepsis without septic shock; D63.1 Anemia in chronic kidney disease; E86.0 Dehydration; I25.2 Old myocardial infarction; D47.3 Essential (hemorrhagic) thrombocythemia; N31.9 Neuromuscular dysfunction of bladder, unspecified; R33.9 Retention of urine, unspecified; Y95 Nosocomial condition; E66.9 Obesity, unspecified; Z79.4 Long term (current) use of insulin; Z93.1 Gastrostomy status; Z93.0 Tracheostomy status; Z79.82 Long term (current) use of aspirin; Z79.1 Long term (current) use of non-steroidal anti-inflammatories (NSAID); Z79.899 Other long term (current) drug therapy

== ENCOUNTER 2020-02-16 14:33 | Emergency (ER) | payer OTHER ==
[2020-02-16] MEDS ORDERED: methylPREDNISolone SODIUM SUC 125 MG/2 ML VIAL IV ONE (14:50)
[2020-02-16] MEDS ORDERED: SODIUM CHLORIDE 0.9% 1000ML 1,000 ML ONE (15:59)
--- NOTE | 2020-02-16 16:14 | CT ---
EXAM DESCRIPTION: Head CLINICAL HISTORY: ams, hyhpoglycemia COMPARISON: February 13, 2020 TECHNIQUE: Noncontrast transaxial CT images of the head are obtained from base to vertex. This exam was performed according to our departmental dose-optimization program, which includes automated exposure control, adjustment of the mA and/or kV according to patient size and/or use of iterative reconstruction technique. FINDINGS: The midline structures are not displaced. The sulci are age appropriate. The lateral, third, and fourth ventricles are normal in size, shape, and anatomic positioning. There is no evidence of mass, mass effect, hydrocephalus, or acute intracranial hemorrhage. No abnormal extra axial fluid collections are seen. 1 cm focus of decreased attenuation in the posterior basal ganglia to periventricular white matter of the posterior right frontal lobe could represent area of old infarct versus prominent perivascular space. Normal sosa-white differentiation is seen. The visualized bone windows show no depressed skull fracture or significant abnormality. The visualized paranasal sinuses shows mild to moderate mucosal thickening in the ethmoid air cells and sphenoid sinuses. Small fluid in the left mastoid air cells. Increased attenuation in the ocular globes left greater than right could represent vitreous hemorrhage . IMPRESSION: 1. No acute abnormality is seen on noncontrast CT of the head. 2. CT is insensitive for evaluation of acute intracranial hemorrhage. Consider further evaluation with MRI imaging if clinically indicated. Electronically signed by: Charles Isaac MD 02/16/2020 4:12 PM [facility]
--- NOTE | 2020-02-16 16:18 | RAD ---
EXAM: Chest,1 View INDICATION: 44 years Female, ams, hypoglycemia COMPARISON: Single view of the chest 02/15/2020 FINDINGS: Single view of the chest was performed on 2 images. Stable tracheostomy tube. Stable cardiomegaly. Prominent central pulmonary vasculature. Bilateral perihilar infiltrates seen on the prior examination appear mildly improved. The focal left midlung opacification is also less apparent. No definite sizable pleural effusion. No pneumothorax. The osseous structures are intact. A PEG tube is noted in the left upper quadrant. IMPRESSION: Pulmonary infiltrates have improved when compared to the prior examination of 02/15/2020. Electronically signed by: Amanda Jo MD 02/16/2020 4:16 PM [facility]
[2020-02-16] MEDS ORDERED: DEXTROSE 10% 1000ML 1,000 ML IVS ONE (17:44)
[2020-02-16] MEDS ORDERED: FLUCONAZOLE IV 200 MG in PREMIX BAG 1 BAG IVPB ONE (17:45)
[2020-02-16] MEDS ORDERED: SODIUM CHLORIDE 0.9% 1000ML 1,000 ML IVS ONE (17:54)
[2020-02-16] MEDS ORDERED: DEXTROSE 50% 25 GM/50 ML SYG IV ONE (18:14)
[2020-02-16] MEDS ORDERED: VANCOMYCIN HCL INJ 1,000 MG, VANCOMYCIN HCL INJ 500 MG in SODIUM CHLORIDE 0.9% 250ML 25... IVPB ONE (18:17)
[2020-02-16] MEDS ORDERED: MEROPENEM 1 GM in SODIUM CHL 0.9% 50ML MIN-BAG+ 50 ML IVPB ONE (18:17)
--- NOTE | 2020-02-16 18:23 | RAD ---
EXAM: XR Chest, 1 View CLINICAL HISTORY: The patient is 44 years old and is Female; Central Line Placement TECHNIQUE: Single view of the chest. COMPARISON: February 16, 2020 4:02 PM. FINDINGS: Lungs: Left lower lobe consolidation or atelectasis. Pleural space: Unremarkable. No pneumothorax. Heart: The cardiac silhouette is enlarged versus artifact of AP technique. Cardiomediastinal silhouette is not significantly changed given the differences in technique. Mediastinum: See above. Bones/joints: The bones and joints are unchanged as visualized. Tubes, lines and devices: Right IJ line is in the SVC. Tracheostomy tube again noted. Upper abdomen: No free air in the visualized upper abdomen. IMPRESSION: 1. Right IJ line is in the SVC. No pneumothorax visualized. 2. Left lower lobe consolidation or atelectasis. Electronically signed by: Bella Mandel MD 02/16/2020 6:22 PM [facility]
[2020-02-16] MEDS ORDERED: NOREPINEPHRINE BITARTRATE 4 MG in DEXTROSE 5% 250ML 250 ML IVPB ONE (19:28)
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
[2020-02-16 20:28] VITALS: TEMP 97.7; O2SAT 99
[2020-02-16 20:57] VITALS: BP 116/75
== END 2020-02-16 20:53 | disposition short-term general hospital (02) ==
LOC: ER 14:33
DX: A41.9 Sepsis, unspecified organism (principal); R65.21 Severe sepsis with septic shock; J96.21 Acute and chronic respiratory failure with hypoxia; J96.22 Acute and chronic respiratory failure with hypercapnia; G93.40 Encephalopathy, unspecified; E11.649 Type 2 diabetes mellitus with hypoglycemia without coma; R00.1 Bradycardia, unspecified; I25.2 Old myocardial infarction; I10 Essential (primary) hypertension; Z93.1 Gastrostomy status; Z93.0 Tracheostomy status; Z87.01 Personal history of pneumonia (recurrent); Z87.440 Personal history of urinary (tract) infections; Z20.828 Contact with and (suspected) exposure to other viral communicable diseases; Z79.899 Other long term (current) drug therapy; Z79.82 Long term (current) use of aspirin; Z79.4 Long term (current) use of insulin
CPT/HCPCS: 36415; 36416; 36600; 70450; 71045; 80053; 81001; 82550; 82553; 82803; 82805; 82948; 83605; 83880; 84443; 84484; 85025; 85610; 85730; 87040; 87086; 87635; 93005; 94002; 94770; J1450; J2060; J2185; J2930; J3370; J7030; J7050; J7060; J7799